=== PATIENT | female | born 1945 | race Two or more races ===

== ENCOUNTER 2018-07-21 09:13 | Outpatient (CLI) | payer OTHER | END 2018-07-21 14:15 | disposition home or self-care (01) | LOC: SONOGRAMA 09:13 | DX: E04.1 Nontoxic single thyroid nodule (principal) ==

== ENCOUNTER 2019-04-20 09:10 | Outpatient (CLI) | payer OTHER | END 2019-04-20 09:14 | disposition home or self-care (01) | LOC: SONOGRAMA 09:10 | DX: E04.2 Nontoxic multinodular goiter (principal) ==